=== PATIENT | female | born 1990 | race Two or more races ===

== ENCOUNTER 2024-12-08 04:33 | Emergency (ER) | payer MEDICAID, SELFPAY ==
[2024-12-08 04:42] VITALS: BP 123/85; PULSE 90; RESP 18; TEMP 37.1; O2SAT 98
[2024-12-08 04:57] VITALS: BMI 37.5
--- NOTE | 2024-12-08 05:50 | EDNOTE_ITS ---
<Statement entered by Anita Still MD - 12/08/24 18:25> As co-signing physician, I was present and available for consult prn. I concur with the plan and care as documented by the midlevel provider. Upper Respiratory Inf. RME/HPI General Chief Complaint: Dental/Oral/Throat Stated Complaint: THROAT PAIN, HEADACHE, EAR PAIN Time Seen by Provider: 12/08/24 05:49 Arrival date/time: 12/08/24 04:33 34F with no significant PMH presents to ED with several days of cough, sore throat, and ear pain. Patient went to PCP and was diagnosed with strep and given amoxicillin. Limitations: no limitations Related Data Previous Rx's ?Medication ?Instructions ?Recorded cyclobenzaprine 10 mg tablet 10 mg PO TID PRN muscle s pasm #15 08/29/23 tabs Allergies Allergy/AdvReac Type Severity Reaction Status Date / Time No Known Allergies Allergy Verified 12/08/24 04:34 Review of Systems Review of Systems Systems Reviewed: All systems reviewed, normal except as documented Constitutional Constitutional: Reports system reviewed and no additional complaints, except as documented, Reports as per HPI, Denies fever(s) and Reports headache(s) ENT Ears, Nose, Mouth, and Throat: Reports as per HPI, Denies disequilibrium, Reports headache(s) and Reports sore throat Cardiovascular Cardiovascular: Reports system reviewed and no additional complaints, except as documented, Denies chest pain and Denies dyspnea Respiratory Respiratory: Reports system reviewed and no additional complaints, except as documented, Reports as per HPI, Reports cough and Denies dyspnea Gastrointestinal Gastrointestinal: Reports system reviewed and no additional complaints, except as documented, Denies abdominal pain, Denies nausea and Denies vomiting Neurologic Neurologic: Reports system reviewed and no additional complaints, except as documented, Denies confusion, Denies disequilibrium and Reports headache(s) Psychiatric Psychiatric: Denies confusion Past Medical History Past Medical History CARDIAC: Negative Congestive Heart Failure RESPIRATORY: Negative Chronic Obstructive Pulmonary Disease (COPD) GENITOURINARY: Negative Renal Disease ENDOCRINE: Negative Diabetes Mellitus Type 1 or Diabetes Mellitus Type 2 Social History SMOKING STATUS: Never smoker ED Exam General Limitations: Present no limitations General appearance: Present alert and in no apparent distress Head Head exam: Present atraumatic Eye Eye exam: Present normal appearance, PERRL and EOMI ENT ENT exam: Present mucous membranes moist Expanded ENT Exam Throat exam: Present tonsillar erythema, tonsillomegaly and tonsillar exudate; Absent R peritonsillar mass, L peritonsillar mass or muffled voice Neck Neck exam: Present normal inspection, full ROM and trachea midline Chest Chest inspection: Present normal inspection and symmetric chest wall rise Respiratory Respiratory exam: Present normal lung sounds bilaterally Cardiovascular Cardiovascular exam: Present regular rate, normal rhythm and normal heart sounds Abdominal Exam Abdominal exam: Present soft and normal bowel sounds Extremities Exam Extremities exam: Present normal inspection and full ROM Back Exam Back exam: Present normal inspection and full ROM Neurological Exam Neurological exam: Present alert, oriented X3 and CN II-XII intact Psychiatric Psychiatric exam: Present normal affect and normal mood Skin Skin exam: Present warm, dry, intact and normal color Course Quality Measures none Vital Signs Vital signs: Vital Signs Temperature 98.7 F 12/08/24 04:42 Pulse Rate 90 12/08/24 04:42 Respiratory Rate 18 12/08/24 04:42 Blood Pressure 123/85 H 12/08/24 04:42 Pulse Oximetry (%) 98 12/08/24 04:42 Oxygen Delivery Method Room Air 12/08/24 04:42 O2 at 98% on RA and WNLs Upper Respiratory Infection MDM Narrative MDM Narrative:: 34F with no significant PMH presents to ED with several days of cough, sore throat, and ear pain. Patient went to PCP and was diagnosed with strep and given amoxicillin. Physical exam reveals red and swollen oropharynx with some exudates. Normal TMs and lungs. Normal WOB. Patient is afebrile, calm, and alert. Bobbin Sorter given. Patient data External records reviewed:: [facility] previous records Clinical information provided by:: patient Social determinants that could affect healthcare access:: none Patient has the following chronic illnesses:: none How is presenting disease/condition affected by chronic disease/condition?: no chronic disease Evaluation data The following diagnostics were reviewed and interpreted by me:: other (specify) (none) Lab and/or radiology exams considered but not ordered:: not ordered Interpretation Summary: n/a Medications / Prescriptions Medications or Prescriptions considered but not ordered:: not ordered Medication administrations:: n/a Consultations Consultation(s) initiated? (list below): No Diagnosis Upper Respiratory Differential Diagnosis: upper respiratory infection, croup, otitis media, sinusitis, viral infection, bronchitis, influenza and pharyngitis Most likely diagnosis given after review of the tests above:: tonsillitis Admission Indicated Admission indicated?: not indicated Admission Request Was there a request for admission?: No Disposition Plan Disposition Plan: Discharge Discharge Attestation Discharge Attestation: The patient and all family members were given an opportunity to ask questions and understood the discharge instructions. Discharge instructions specifically effects, indications for sooner follow up or return to the emergency department, and the expected course of current diagnosis. Patient condition: Stable Discharge Plan Plan Patient Disposition: HOME (Self Care) Discharge Disposition comment: Stable Prescriptions/Referrals Prescriptions/Med Rec: No Action cyclobenzaprine 10 mg tablet 10 mg PO TID PRN (Reason: muscle spasm) Qty: 15 0RF Problem List Clinical Impression: Acute tonsillitis Patient/Caregiver Discharge Instructions Education Materials: Tonsillitis in Adults Additional Instructions: Please follow-up with PCP within 24-48 hours and return immediately if symptoms worsen. Ibuprofen/Tylenol can be used simultaneously for greater fever/pain control. Benadryl is good for cough, congestion, and sleep. Finish ABX. Print Language: Russian Stand Alone Forms: Patient Portal Info Letter PA/SOFTWARE SUPPORT SPECIALIST Supervising Physician VANESSA/LUCIANO Supervising Physician: Dr. Still
== END 2024-12-08 05:58 | disposition home or self-care (01) ==
LOC: SERX 05:54
PROVIDERS: Emergency Provider Emergency Medicine; PCP Family Medicine
DX: J03.90 Acute tonsillitis, unspecified (principal)
CPT/HCPCS: 99281